=== PATIENT | female | born 1985 ===

== ENCOUNTER 2018-11-20 07:11 | Inpatient (IN) | payer OTHER ==
[~2018-11-20] VITALS: Ht 172.7 cm; Wt 89.9 kg
[2018-11-20 07:40] LABS: Source, Urine Clean Catch
[2018-11-20 07:44] LABS: Bilirubin, Urine Neg (Neg); Blood, Urine 1+ (Neg); Glucose Qualitative, Urine Neg (Neg); Ketones, Urine Neg (Neg); Leukocyte Esterase, Urine Neg (Neg); Nitrite, Urine Neg (Neg); Protein, Urine Neg (Neg); Specific Gravity, Urine 1.015 (1.003-1.022); Urobilinogen, Urine NORM (Normal)
[2018-11-20 08:01] LABS: Appearance, Urine Clear (Clear); Color, Urine Yellow (P-Yellow)
[2018-11-20 08:02] LABS: Bacteria Not Seen /hpf; Red Blood Cells, Urine 0-2 /hpf (0-2); Squamous Epithelial Cells Few /hpf (Few); White Blood Cells, Urine Not Seen /hpf (0-5)
[2018-11-20 08:24] LABS: BASOPHILS ABSOLUTE AUTO 0.04 K/mm3 (0.00-0.23); BASOPHILS PERCENT AUTO 0 % (0-2); EOSINOPHILS ABSOLUTE AUTO 0.06 K/mm3 (0.00-0.68); EOSINOPHILS PERCENT AUTO 1 % (0-6); Hematocrit 39.3 % (33.0-51.0); Hemoglobin 13.4 g/dL (11.5-16.0); IMMATURE GRAN PERCENT AUTO 1 % (0-1); LYMPHOCYTES PERCENT AUTO 20 % (21-46); MONOCYTES ABSOLUTE AUTO 0.97 K/mm3 (0.16-1.47); MONOCYTES PERCENT AUTO 7 % (4-13); Mean Corpuscular HGB 30.2 pg (26.0-34.0); Mean Corpuscular HGB Conc 34.1 g/dL (31.5-36.5); Mean Corpuscular Volume 89 fL (80-100); Mean Platelet Volume 12.4 fL (9.1-12.4); NEUTROPHILS ABSOLUTE AUTO 9.43 K/mm3 (1.96-9.15); NEUTROPHILS PERCENT AUTO 71 % (41-73); Platelet Count 251 K/mm3 (150-400); RDW Coefficient Variation 12.8 % (11.7-14.2); RDW Standard Deviation 41.9 fL (35.1-46.3); Red Blood Cell Count 4.43 M/mm3 (3.80-5.20)
[2018-11-20 08:39] LABS: Alanine Aminotransfer (ALT/SGP 19 U/L (12-78); Albumin, Blood 2.7 g/dL (3.4-5.0); Albumin/Globulin Ratio 0.6 (0.8-1.8); Alk Phos 143 U/L (50-136); Anion Gap 10 mmol/L (6-16); Aspartate Aminotrans (AST/SGOT 19 U/L (12-37); Bilirubin, Total 0.2 mg/dL (0.1-1.0); Blood Urea Nitrogen 14 mg/dL (8-24); Bun/Creatinine Ratio 19.1 (12.0-20.0); CO2, Blood 20 mmol/L (21-32); Calcium, Blood 8.7 mg/dL (8.5-10.1); Chloride, Blood 108 mmol/L (98-108); Creatinine, Blood 0.73 mg/dL (0.40-1.00); Globulin, Blood 4.4 g/dL (2.2-4.0); Glomerular Filtration Rate >60 (60-); Glucose, Blood 81 mg/dL (70-99); Sodium, Blood 138 mmol/L (136-145); Total Protein, Blood 7.1 g/dL (6.4-8.2)
[2018-11-20 09:03] LABS: Creatinine, Urine Random 91.3 mg/dL (27.00-270.00); Protein/Creat Ratio, Ur Random 0.2
--- NOTE | 2018-11-20 14:56 | NUR ---
PATIENT GAVE HAND BOBBIN CLEANER PERMISSION FOR CARE ON 11/20/18.
--- NOTE | 2018-11-20 16:45 | NUR ---
PER CNM, PT MAY GET UP TO SHOWER AFTER LABETOLOL ADMINISTRATION FOR A SHORT SHOWER. IF PT BECOMES SYMPTOMATIC THROUGHOUT THE EVENING, CALL CNM.
--- NOTE | 2018-11-20 16:54 | NUR ---
REPORT TO SHEA TREJO RN
--- NOTE | 2018-11-20 17:30 | NUR ---
CONSULT. BABY BORN AT 36 WEEKS GESTATION, AND DID LATCH AND SUCKLE AFTER . CONTINUES SKIN TO SKIN ON MOM. NARROW LATCH THROUGHOUT FIRST LATCHING, TRIED RELATCH AND WIDENING LATCH AND MOM STILL FELT PINCHING. INSTRUCT/DEMO SELF EBM TO PLACE ON BABY'S LIPS TO HELP WAKEN FOR FEEDINGS. INSTRUCT IN CHANGES TO EXPECT DURING THE FIRST WEEK WITH FEEDINGS AND WITH BABY, AND ENERGY CONSERVATION FOR THE BABY. FEEDING PLAN IS TO START OFFERING 5CC OF FORMULA VIA SNS EACH BF DURING THE FIRST 24 HOURS, THEN INCREASE SUPPLEMENT TO 10CC. MOM IS TO PUMP FOR 15 MINUTES, BOTH BREASTS, AT LEAST 8X/DAY. RECORD SHEET GIVEN ALONG WITH CLEANING SUPPLIES. SHEA SHARP WILL HELP HER SET UP THE FIRST TIME. QUESTIONS ANSWERED.
[2018-11-21 06:34] LABS: Hematocrit 33.8 % (33.0-51.0); Hemoglobin 11.4 g/dL (11.5-16.0); Mean Corpuscular HGB 30.2 pg (26.0-34.0); Mean Corpuscular HGB Conc 33.7 g/dL (31.5-36.5); Mean Corpuscular Volume 90 fL (80-100); Mean Platelet Volume 11.9 fL (9.1-12.4); Platelet Count 221 K/mm3 (150-400); RDW Coefficient Variation 13.2 % (11.7-14.2); RDW Standard Deviation 43.1 fL (35.1-46.3); Red Blood Cell Count 3.77 M/mm3 (3.80-5.20); White Blood Cell Count 15.95 K/mm3 (4.00-11.30)
[2018-11-21 06:56] LABS: Alanine Aminotransfer (ALT/SGP 17 U/L (12-78); Albumin, Blood 2.4 g/dL (3.4-5.0); Albumin/Globulin Ratio 0.6 (0.8-1.8); Alk Phos 120 U/L (50-136); Anion Gap 8 mmol/L (6-16); Aspartate Aminotrans (AST/SGOT 23 U/L (12-37); Bilirubin, Total 0.4 mg/dL (0.1-1.0); Blood Urea Nitrogen 12 mg/dL (8-24); Bun/Creatinine Ratio 16.3 (12.0-20.0); CO2, Blood 21 mmol/L (21-32); Calcium, Blood 8.4 mg/dL (8.5-10.1); Chloride, Blood 111 mmol/L (98-108); Creatinine, Blood 0.74 mg/dL (0.40-1.00); Globulin, Blood 3.9 g/dL (2.2-4.0); Glomerular Filtration Rate >60 (60-); Glucose, Blood 79 mg/dL (70-99); Potassium, Blood 4.1 mmol/L (3.5-5.5); Sodium, Blood 140 mmol/L (136-145); Total Protein, Blood 6.3 g/dL (6.4-8.2)
--- NOTE | 2018-11-21 08:30 | NUR ---
IN TO HELP WITH FEED. NB IMPROVING WITH FEEDS. BOTH PARENTS LOVING TOWARDS NB. DAD HELPING WITH SYRINGE FEED, FEELING CONFIDENT IN CARE. RN WATCHED FEED, PARENTS DID WELL. PLAN TO STAY ANOTHER DAY, CALL TO MICRO, NO GROWTH YET.
[2018-11-21] MEDS ORDERED: Verotin-Gr Cap1 EACH PO (10:55)
--- NOTE | 2018-11-21 13:50 | NUR ---
REPORT TO SHEA TREJO RN.
--- NOTE | 2018-11-21 13:52 | NUR ---
CNM NOTE: CALLED TO GIVE CNM NEXT BP 133/89, CNM ASKED TO HOLD LEBATLOL NOW AND SHE WILL CONSULT WITH ABOUT PERAMETERS FOR NEXT BP. INSTRUCTED SUNI SHARP IF CNM HASN'T CALLED BACK BY NEXT BP AT [phone] TO CONTACT HER.
--- NOTE | 2018-11-21 16:19 | NUR ---
ASSIST PARENTS TOOK CHILD CLASS. THEY ARE NOW WITH A TUBE AND SYRINGE 5-10 ML FO. MOM IS ALSO PUMPING AFTER FEEDINGS IN STRUCTE TO KEEP FEEDING TIME TO NO LONGER THAT 15 MINUTES.
--- NOTE | 2018-11-21 17:15 | NUR ---
Assumed care from Jeremy Lazcano RN.
--- NOTE | 2018-11-21 23:56 | NUR ---
PT CALLED TO STATE SHE NEEDS TO TAKE A HOT SHOWER BECAUSE SHE IS CRAMPING. NB AT BREAST AT THIS TIME. STATES SHE NEEDS TO TAKE HIM OFF CAUSE SHE HAS TO GET UP. NB SWADDLED AND TAKEN TO DESK WHILE MOB SHOWERS, WILL CALL WHEN DONE.
--- NOTE | 2018-11-22 12:42 | NUR ---
NOON BLOOD PRESSURE WAS 159/88 AND 5 MINUTES LATER WITH PT LAYING FLAT BP 147/90. PT DENIES ANY SIGNS OF BLURRY VISION, DIZZINESS, CLONUS OR HEADACHE. REGINO LYNCH WAS NOTIFIED OF BLOOD PRESSURE READINGS. PROVIDER REPORTED SHE WOULD LIKE TO DISCHARGE PT WITHOUT BLOOD PRESSURE MEDICATIONS AND HAVE HER BLOOD PRESSURE RECHECKED TOMORROW AT HER PP F/U APPOINTMENT. REGINO LYNCH ALSO WOULD LIKE PT TO F/U WITH HER IN ONE WEEK TO RECHECK BLOOD PRESSURE AND FOLLOW UP WITH PT.
[2018-11-22] MEDS ORDERED: IBUP800 PO (14:52)
[2018-11-22] MEDS ORDERED: Ferrous Sulfat325 M2 PO (14:52)
[2018-11-22] MEDS ORDERED: DOCU100 PO (14:53)
--- NOTE | 2018-11-22 18:10 | NUR ---
FOLLOW UP. FAMILY PLANS HOME SOON. BABY ASLEEP IN DADS LAP. SHE IS AT A 5% WT LOSS TODAY. MOM HAS BEEN PUMPING Q2-3 HOURS AND OBTAINED 4-5CC OF COLOSTRUM IN 15 MINUTES RECENTLY. BREASTS ARE GETTING MORE DENSE NOW. PARENTS HAVE BEEN OFFERING 5CC OF SUPPLEMENT, EBM OR FORMULA, EACH FEEDING. SHE IS STILL BITING AT BREAST OFTEN. INSTRUCT TO INCREASE SUPPLEMENT TO 10CC/FEEDING, CONTINUE WITH PUMPING Q2-3 HOURS FOR 15 MINUTES, FEEDING EBM WHEN AVAILABLE, FEEDING BABY Q2-3 HOURS. PLAN FOR FOLLOW UP IN [facility] TOMORROW AT 1130. PLAN TO EVALUATE SUCK THEN, AND PRODUCTION. QUESTIONS ANSWERED, MORE SNS SUPPLIES GIVEN.
== END 2018-11-22 19:08 | disposition home or self-care (01) | DRG 807 ==
LOC: OBS 07:11 → BC 07:12 → OBS 12:47 → BC 12:49
PROVIDERS: ADMIT Advanced Practice Midwife
PROC: 10E0XZZ Delivery of Products of Conception, External Approach (ICD-10-PCS; principal; 2018-11-20)
PROC: 6A550ZT Pheresis of Cord Blood Stem Cells, Single (ICD-10-PCS; 2018-11-20)
DX: O13.4 Gestational [pregnancy-induced] hypertension without significant proteinuria, complicating childbirth (principal); Z37.0 Single live birth; Z3A.36 36 weeks gestation of pregnancy
CPT/HCPCS: 36415; 59025; 76819; 80053; 81001; 82570; 84156; 85025; 85027; 87081; 87210; 87653; J0290; J0360; J1885; J2405; J2590; J3010; J7120

== ENCOUNTER → 2020-11-02 | Outpatient (CLI) | payer OTHER ==
[~2020-11-02] MED LIST: DOCU100 PO; Ferrous Sulfat325 M2 PO; IBUP800 PO; Verotin-Gr Cap1 EACH PO
[2020-11-04 01:11] LABS: CHLAMYDIA TRACHOMATIS, NAA Negative (Negative); HPV 16 Negative (Negative); HPV 18 Negative (Negative); HPV OTHER HR TYPES Negative (Negative)
== END | disposition home or self-care (01) ==
LOC: LAB 14:27 → LAB SHORT 14:27
PROVIDERS: Advanced Practice Midwife
DX: Z01.419 Encounter for gynecological examination (general) (routine) without abnormal findings (principal); Z11.3 Encounter for screening for infections with a predominantly sexual mode of transmission
CPT/HCPCS: 87491; 87591; 87624; G0123